=== PATIENT | male | born 1990 | race Caucasian/White ===

== ENCOUNTER 2017-06-03 18:29 | Emergency (ER) | payer MEDICAID ==
[2017-06-03 21:41] VITALS: BP 133/74
== END 2017-06-03 21:41 | disposition home or self-care (01) ==
LOC: ED 18:29
DX: H61.23 Impacted cerumen, bilateral (principal); R42 Dizziness and giddiness; H66.91 Otitis media, unspecified, right ear; J02.9 Acute pharyngitis, unspecified
CPT/HCPCS: Q0162

== ENCOUNTER 2018-05-06 17:13 | Emergency (ER) | payer MEDICAID ==
[~2018-05-06] VITALS: Ht 177.8 cm; Wt 65.8 kg
[2018-05-06 17:18] VITALS: Ht 177.8 cm; Wt 65.8 kg
[2018-05-06 17:40] LABS: PLATELET COUNT 263 x10^3mcL (130-400)
[2018-05-06 17:46] LABS: CALCIUM 8.1 mg/dL (8.5-10.1); CARBON DIOXIDE 26.9 mmol/L (21-32); CHLORIDE SERUM 103 mmol/L (98-107); CREATININE SERUM 0.8 mg/dL (0.7-1.3); GFR1 > 60 mL/min; GLUCOSE SERUM 109 mg/dL (74-106); POTASSIUM SERUM 3.3 mmol/L (3.5-5.1); SODIUM SERUM 136 mmol/L (136-145)
[2018-05-06 17:50] LABS: ALBUMIN 3.4 g/dL (3.4-5.0); ALKALINE PHOSPHATASE 85 U/L (46-116); ALT/SGPT 18 U/L (16-63); AST/SGOT 13 U/L (15-37); BILIRUBIN TOTAL 0.43 mg/dL (0.20-1.00); LIPASE 157 IU/L (73-393); TOTAL PROTEIN, SERUM 7.3 g/dL (6.4-8.2)
[2018-05-06 18:10] LABS: BAND NEUTROPHIL 4 % (0-10); BASOPHIL 0 % (0-2); MONOCYTE 5 % (0-7); SEGMENTED NEUTROPHILS 83 % (37-75); rbc morphology (normal/abnorm) NORMAL (NORMAL)
[2018-05-06 19:22] VITALS: BP 133/77
== END 2018-05-06 19:22 | disposition home or self-care (01) ==
LOC: ED 17:13
PROVIDERS: Emergency Medicine
DX: K52.9 Noninfective gastroenteritis and colitis, unspecified (principal); Z88.6 Allergy status to analgesic agent; Z88.5 Allergy status to narcotic agent
CPT/HCPCS: J2270; J2405; J7030

== ENCOUNTER 2020-02-10 14:20 | Emergency (ER) | payer MEDICAID, SELFPAY ==
[~2020-02-10] VITALS: Ht 167.6 cm; Wt 68.0 kg
[2020-02-10 14:24] VITALS: Ht 167.6 cm; Wt 68.0 kg
== END 2020-02-10 15:02 | disposition home or self-care (01) ==
LOC: ED 14:20
DX: J02.9 Acute pharyngitis, unspecified (principal); R50.9 Fever, unspecified; R05 Cough; M79.10 Myalgia, unspecified site; Z20.828 Contact with and (suspected) exposure to other viral communicable diseases; Z88.8 Allergy status to other drugs, medicaments and biological substances
CPT/HCPCS: U0003-CS

== ENCOUNTER 2020-02-22 06:01 | Emergency (ER) | payer MEDICAID ==
[~2020-02-22] VITALS: Ht 177.8 cm; Wt 68.0 kg
[2020-02-22 06:14] VITALS: Ht 177.8 cm; Wt 68.0 kg
[2020-02-22 08:06] VITALS: BP 140/74
== END 2020-02-22 08:07 | disposition home or self-care (01) ==
LOC: ED 06:01
DX: S29.9XXA Unspecified injury of thorax, initial encounter (principal); S39.91XA Unspecified injury of abdomen, initial encounter; Z88.8 Allergy status to other drugs, medicaments and biological substances; X50.9XXA Other and unspecified overexertion or strenuous movements or postures, initial encounter; Y93.89 Activity, other specified; Y92.89 Other specified places as the place of occurrence of the external cause; Y99.8 Other external cause status
CPT/HCPCS: J1885; Q0092